=== PATIENT | female | born 1960 | race Caucasian/White ===

== ENCOUNTER 2021-01-17 08:24 | Outpatient (CLI) | payer MEDICAID ==
[2021-01-17 14:27] LABS: BASOPHILS % (AUTO) 1.3 %; EOSINOPHILS # (AUTO) 0.4 10^3/uL (0.0-0.7); HCT - HEMATOCRIT 39.2 % (37.0-47.0); HGB - HEMOGLOBIN 12.2 g/dL (12.0-16.0); LYMPHOCYTES # (AUTO) 1.2 10^3/uL (1.5-3.5); LYMPHOCYTES % (AUTO) 38.4 %; MEAN CORPUSCULAR HEMOGLOBIN 30.3 pg (27.0-31.0); MEAN CORPUSCULAR HGB CONC 31.1 g/dL (32.0-36.0); MEAN CORPUSCULAR VOLUME 97.3 fL (81.0-99.0); MEAN PLATELET VOLUME 11.9 fL (7.9-10.8); MONOCYTES # (AUTO) 0.3 10^3/uL (0.0-1.0); MONOCYTES % (AUTO) 7.9 %; NEUTROPHILS # (AUTO) 1.3 10^3/uL (1.5-6.6); NEUTROPHILS % (AUTO) 41.1 %; PLT - PLATELET COUNT 171 10^3/uL (130-450); RED BLOOD COUNT 4.03 10^6/uL (4.20-5.40); RED CELL DISTRIBUTION WIDTH 12.8 % (12.0-15.0); WHITE BLOOD COUNT 3.2 x10^3/uL (4.8-10.8)
[2021-01-17 14:54] LABS: THYROID STIMULATING HORMONE 2.53 uIU/mL (0.34-5.60)
[2021-01-17 15:02] LABS: ALBUMIN/GLOBULIN RATIO 1.8 (1.0-2.2); ALKALINE PHOSPHATASE 56 IU/L (42-121); ALT ALANINE AMINOTRANSFERASE 24 IU/L (10-60); AST ASPARTATE AMINOTRANSFERASE 26 IU/L (10-42); BILIRUBIN,TOTAL 0.9 mg/dL (0.2-1.0); BUN - BLOOD UREA NITROGEN 10 mg/dL (6-20); CARBON DIOXIDE - CO2 30 mmol/L (21-32); CHLORIDE 106 mmol/L (101-111); CHOL/HDL RATIO 2.6 (<4.4); CHOLESTEROL 179 mg/dL; CREATININE 0.6 mg/dL (0.4-1.0); GFR - MDRD 101 (>89); GLUCOSE 102 mg/dL (70-100); HDL CHOLESTEROL 68 mg/dL; LDL CHOLESTEROL,CALCULATED 100 mg/dL; LDL/HDL RATIO 1.5 (<4.4); POTASSIUM 4.5 mmol/L (3.5-5.0); SODIUM 144 mmol/L (135-145); TOTAL PROTEIN 6.2 g/dL (6.7-8.2); TRIGLYCERIDES 56 mg/dL; VLDL CHOLESTEROL 11 mg/dL
== END 2021-01-17 08:25 | disposition home or self-care (01) ==
LOC: LAB.S 08:24
PROVIDERS: ATTEND Registered Nurse
DX: Z13.228 Encounter for screening for other metabolic disorders (principal); Z13.220 Encounter for screening for lipoid disorders; Z13.29 Encounter for screening for other suspected endocrine disorder; Z13.0 Encounter for screening for diseases of the blood and blood-forming organs and certain disorders involving the immune mechanism
CPT/HCPCS: 36415; 80053; 80061; 83721; 84443; 85025

== ENCOUNTER 2023-02-13 19:57 | Outpatient (CLI) | payer MEDICAID | END 2023-02-13 23:59 | disposition critical access hospital (66) | LOC: EMS 19:57 | DX: F10.129 Alcohol abuse with intoxication, unspecified (principal); R41.0 Disorientation, unspecified; R03.1 Nonspecific low blood-pressure reading; E16.2 Hypoglycemia, unspecified | CPT/HCPCS: A0425; A0427; A0999 ==

== ENCOUNTER 2023-02-13 20:40 | Emergency (ER) | payer MEDICAID ==
[2023-02-13] MEDS ORDERED: SODIUM CHLORIDE 0.9% 1,000 ML IV STA (20:45)
[2023-02-13 20:54] LABS: BASOPHILS # (AUTO) 0.1 10^3/uL (0.0-0.1); BASOPHILS % (AUTO) 0.9 %; EOSINOPHILS # (AUTO) 0.5 10^3/uL (0.0-0.7); EOSINOPHILS % (AUTO) 8.3 %; HCT - HEMATOCRIT 37.5 % (37.0-47.0); HGB - HEMOGLOBIN 11.8 g/dL (12.0-16.0); LYMPHOCYTES # (AUTO) 1.7 10^3/uL (1.5-3.5); MEAN CORPUSCULAR HEMOGLOBIN 30.4 pg (27.0-31.0); MEAN CORPUSCULAR HGB CONC 31.5 g/dL (32.0-36.0); MEAN CORPUSCULAR VOLUME 96.6 fL (81.0-99.0); MEAN PLATELET VOLUME 10.2 fL (7.9-10.8); MONOCYTES # (AUTO) 0.4 10^3/uL (0.0-1.0); MONOCYTES % (AUTO) 6.3 %; NEUTROPHILS # (AUTO) 3.2 10^3/uL (1.5-6.6); NEUTROPHILS % (AUTO) 55.3 %; PLT - PLATELET COUNT 219 10^3/uL (130-450); RED BLOOD COUNT 3.88 10^6/uL (4.20-5.40); RED CELL DISTRIBUTION WIDTH 13.1 % (12.0-15.0); WHITE BLOOD COUNT 5.7 x10^3/uL (4.8-10.8)
[2023-02-13 21:11] LABS: ALBUMIN 4.2 g/dL (3.2-5.5); ETOH - ETHANOL 203.3 mg/dL
[2023-02-13 21:17] LABS: ALBUMIN/GLOBULIN RATIO 1.9 (1.0-2.2); BILIRUBIN,TOTAL 0.3 mg/dL (0.2-1.0); POTASSIUM 3.8 mmol/L (3.5-4.5); TOTAL PROTEIN 6.4 g/dL (6.4-8.9)
[2023-02-13 21:24] LABS: CREATININE 0.7 mg/dL (0.4-1.0)
--- NOTE | 2023-02-13 21:36 | ED Physician Documentation ---
History of Present Illness - Stated complaint Stated Complaint: SYNCOPE - Chief complaint Chief Complaint: Neuro - History obtained from History obtained from: Patient, EMS - Additonal information Additional information: 62-year-old female with history of alcohol use disorder presents by EMS from home for possible syncopal episode. EMS states that the patient lives in the [id number] of her daughter's house, her daughter came to check on her and found her sitting on the floor. Patient had apparently been moving furniture around during this episode. Patient did not remember falling, but did endorse drinking most of 1/5 of a bottle of alcoholic bridger mix. Patient endorsed mild pain in her L knee that is slightly worse than ususal - she has arthritis and is currently being worked up for knee replacement surgery. Patient denies use of blood thinners. EMS reports initial accucheck 59, she was given 125ccs D10 with improvement in sugar 79 Review of Systems Constitutional: denies: Fever, Chills Cardiac: denies: Chest pain / pressure, Palpitations, Calf pain Respiratory: denies: Dyspnea, Cough, Wheezing GI: denies: Abdominal Pain, Nausea, Vomiting : denies: Dysuria, Frequency, Hesitancy Musculoskeletal: reports: Joint pain. denies: Neck pain, Back pain, Extremity pain, Extremity swelling Neurologic: denies: Generalized weakness, Focal weakness, Numbness, Difficulty speaking, Syncope, Seizure, Confused, Headache, Head injury PD PAST MEDICAL HISTORY - Allergies Allergies/Adverse Reactions: Allergies Allergy/AdvReac Type Severity Reaction Status Date / Time No Known Drug Allergies Allergy Verified 02/13/23 20:51 PD ED PE NORMAL - Vitals Vital signs reviewed: Yes - General General: Alert and oriented X 3, Well developed/nourished - HEENT HEENT: Atraumatic, PERRL, EOMI - Neck Neck: Supple, no meningeal sign, No bony TTP - Cardiac Cardiac: RRR - Respiratory Respiratory: No respiratory distress, Clear bilaterally - Abdomen Abdomen: Soft, Non tender, Non distended - Back Back: No CVA TTP, No spinal TTP - Derm Derm: Normal color, Warm and dry, No rash - Extremities Extremities: No deformity, Normal ROM s pain, No edema, Other (L knee tenderness to palpation. 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, No motor deficit, Normal speech - Psych Psych: Normal mood, Normal affect Results - Vitals Vitals: Vital Signs - 24 hr 02/13/23 02/13/23 02/13/23 20:42 22:00 22:45 Temperature 36.4 C L Heart Rate 71 81 71 Respiratory 16 18 18 Rate Blood Pressure 136/75 H 128/63 107/65 O2 Saturation 97 100 98 Oxygen O2 Source Room air - Labs Labs: Laboratory Tests 02/13/23 02/13/23 20:50 20:50 WBC 5.7 RBC 3.88 L Hgb 11.8 L Hct 37.5 MCV 96.6 MCH 30.4 MCHC 31.5 L RDW 13.1 Plt Count 219 MPV 10.2 Neut # (Auto) 3.2 Lymph # (Auto) 1.7 [place] # (Auto) 0.4 Eos # (Auto) 0.5 Baso # (Auto) 0.1 Absolute Nucleated RBC 0.00 Nucleated RBC % 0.0 Sodium 139 Potassium 3.8 Chloride 105 Carbon Dioxide 28 Anion Gap 6.0 BUN 13 Creatinine 0.7 Estimated GFR (MDRD) 84 L Glucose 109 H Calcium 9.0 Total Bilirubin 0.3 AST 29 ALT 22 Alkaline Phosphatase 60 Total Protein 6.4 Albumin 4.2 Globulin 2.2 Albumin/Globulin Ratio 1.9 Ethyl Alcohol 203.3 PD Medical Decision Making - ED course Complexity details: reviewed results, re-evaluated patient, considered differential, d/w patient ED course: Possible fall with alcohol use. Patient is reporting slightly worse left knee pain than usual, however denies any other complaints. Awake, alert, no acute distress, she is oriented x3. Labs and imaging reviewed. No acute traumatic pathology seen on imaging, patient's alcohol level is 200. She continues to be awake and alert, no acute distress, no new complaints. Patient counseled on importance of alcohol cessation. Referred to [facility] services. Departure - Departure Disposition: 01 Home, Self Care Clinical Impression: Alcohol intoxication Qualifiers: Complication of substance-induced condition: uncomplicated Qualified Code(s): F10.920 - Alcohol use, unspecified with intoxication, uncomplicated Condition: Stable Instructions: ED Alcohol Intoxication Comments: [facility] [address] [phone] Forms: PCP List Discharge Date/Time: 02/13/23 23:01
--- OUTSIDE RECORDS SUMMARY | 2023-02-13 21:39 | EXTERNAL MEDICAL SUMMARY RPT | Continuity of Care Document ---
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 Role Phone Unavailable Unavailable Unavailable Huseyin, Provider Unavailable Unavailable Medications date description facility 2023-02-13 00:00 fluoxetine [facility] 2023-02-13 00:00 amlodipine [facility] 2023-02-13 00:00 [facility]lodipine [facility] 2023-02-13 00:00 [facility]oxetine [facility] 2023-02-13 00:00 [facility]lodipine [facility] 2023-02-13 00:00 [facility]oxetine [facility] 2023-02-13 00:00 [facility]lodipine [facility] 2023-02-13 00:00 fluoxetine [facility] Results/Labs test date facility value unit notes
--- NOTE | 2023-02-13 21:43 | CT Report ---
PROCEDURE: HEAD WO INDICATIONS: glf, poss head trauma, etoh TECHNIQUE: Noncontrast 4.5 mm thick angled axial sections acquired from the foramen magnum to the vertex. For r adiation dose reduction, the following was used: automated exposure control, adjustment of mA and/or kV according to patient size. COMPARISON: None. FINDINGS: Image quality: Excellent. CSF spaces: Basal cisterns are patent. No extra-axial fluid collections. Ventricles are normal in size and shape. Brain: No midline shift. No intracranial masses or hemorrhage. Perez-white matter interface is norm al. Skull and face: Calvarium and visualized facial bones are intact, without suspicious lesions. Sinuses: Visualized sinuses and mastoids are clear. IMPRESSION: No acute intracranial pathology. Reviewed by: Tong Coffey MD on 02/13/2023 9:41 PM PDT Approved by: Tong Coffey MD on 02/13/2023 9:41 PM PDT Station ID: [id number]
--- NOTE | 2023-02-13 21:44 | XRAY Report ---
PROCEDURE: Knee 2 View LT INDICATIONS: GLF, KNEE PAIN TECHNIQUE: 2 views of the left knee(s) were acquired. COMPARISON: None. FINDINGS: Bones: No fractures or dislocations but there is moderately severe to severe medial compartment left knee degenerative osteoarthritic change with prominent spurring at the medial articular margins. Add itionally, there is moderately severe to severe patellofemoral joint degenerative osteoarthritis best seen on the lateral view.. No suspicious bony lesions. Soft tissues: No knee joint effusion. No suspicious soft tissue calcifications or masses. IMPRESSION: No acute bony abnormality but there is moderately severe to severe knee joint osteoarthritis most pro nounced at the medial compartment and the patellofemoral joint. Reviewed by: Tong Coffey MD on 02/13/2023 9:43 PM PDT Approved by: Tong Coffey MD on 02/13/2023 9:43 PM PDT Station ID: [id number]
[2023-02-13 23:04] VITALS: BP 107/65; O2SAT 98
== END 2023-02-13 23:01 | disposition home or self-care (01) ==
LOC: EDUNIT# → ED 20:40
DX: Z04.3 Encounter for examination and observation following other accident (principal); M25.562 Pain in left knee; F10.129 Alcohol abuse with intoxication, unspecified; Y90.7 Blood alcohol level of 200-239 mg/100 ml
CPT/HCPCS: 36415; 80053; 80320; 85025; 93005; 99283; 99284